=== PATIENT | female | born 1955 | race Caucasian/White ===

== ENCOUNTER → 2021-09-29 | Outpatient (CLI) | payer MEDICARE, OTHER | END | disposition home or self-care (01) | LOC: RAH 09-04 09:22 | PROVIDERS: ATTEND Internal Medicine | DX: C50.911 Malignant neoplasm of unspecified site of right female breast (principal); C50.912 Malignant neoplasm of unspecified site of left female breast; R92.2 Inconclusive mammogram; Z98.890 Other specified postprocedural states | CPT/HCPCS: 77065; G0279; 77061 ==

== ENCOUNTER → 2022-10-05 | Outpatient (CLI) | payer MEDICARE, OTHER | END | disposition home or self-care (01) | LOC: RAH 10:52 | PROVIDERS: ATTEND Internal Medicine Medical Oncology | DX: R92.2 Inconclusive mammogram (principal); Z85.3 Personal history of malignant neoplasm of breast; Z98.890 Other specified postprocedural states | CPT/HCPCS: 77065; G0279; 77061 ==

== ENCOUNTER 2023-04-21 17:55 | Emergency (ER) | payer MEDICARE, OTHER ==
[~2023-04-21] VITALS: Ht 162.6 cm; Wt 81.6 kg
[2023-04-21 18:49] LABS: BASOPHILS % (AUTO) 0.8 % (0.0-5.0); EOSINOPHILS % (AUTO) 5.1 % (0.0-8.0); HEMATOCRIT 41.6 % (36-48); LYMPHOCYTES % (AUTO) 36.3 % (21.0-51.0); MEAN CORPUSCULAR HEMOGLOBIN 29.3 pg (27.0-33.0); MEAN CORPUSCULAR HGB CONC 32.2 g/dL (32.0-36.0); MONOCYTES % (AUTO) 6.7 % (3.0-13.0); NEUTROPHILS % (AUTO) 50.8 % (40.0-77.0); PLATELET COUNT (AUTO) 221 K/uL (130-400); RED BLOOD CELL COUNT(AUTO) 4.57 MIL/uL (4.00-5.50); RED CELL DISTRIBUTION WIDTH 13.6 % (11.0-15.5); WHITE BLOOD COUNT (AUTO) 7.9 K/uL (4.8-10.8)
[2023-04-21 19:03] LABS: ALBUMIN 3.4 g/dL (3.5-5.0); CREATININE 0.7 mg/dL (0.5-1.5); POTASSIUM 3.9 mmol/L (3.5-5.1); TOTAL PROTEIN, SERUM 6.6 g/dL (6.0-8.3)
[2023-04-21 20:42] VITALS: BP 119/49
[2023-04-21 20:43] LABS: APPEARANCE,URINE CLEAR (CLEAR); BILIRUBIN,URINE NEGATIVE (NEGATIVE); COLOR,URINE LIGHT-YELLOW (YELLOW); GLUCOSE, URINE (UA) NEGATIVE (NEGATIVE); KETONES,URINE NEGATIVE (NEGATIVE); LEUKOCYTE ESTERASE ,URINE 500 Leu/uL (NEGATIVE); NITRATE,URINE NEGATIVE (NEGATIVE); OCCULT BLOOD,URINE NEGATIVE (NEGATIVE); PH,URINE 6.5 (5.0-8.0); PROTEIN,URINE NEGATIVE (NEGATIVE); UROBILINOGEN,URINE 0.2 mg/dL (0.2-1.0)
[2023-04-21 20:48] LABS: BACTERIA,URINE FEW /HPF (None Seen); MUCUS,URINE RARE LPF (None Seen); SQUAMOUS EPITHELIAL CELL,UR FEW /HPF (0-2); WBC,URINE 26-50 /HPF (0-1)
[2023-04-21] MEDS ORDERED: ASPIRIN 325MG TAB PO ONE (21:00)
[2023-04-21] MEDS ORDERED: CEFTRIAXONE 2GM VIAL IVPB ONE (21:30)
[2023-04-21] MEDS ORDERED: CEPH500B PO (21:31)
== END 2023-04-21 22:16 | disposition home or self-care (01) ==
LOC: EDH 17:55
DX: R07.89 Other chest pain (principal); N39.0 Urinary tract infection, site not specified; Z85.3 Personal history of malignant neoplasm of breast; Z90.710 Acquired absence of both cervix and uterus
CPT/HCPCS: 99285; 96365; 71045; 84484 ×2; 80053; 85025; 87088; 81001; 36415; 93005 ×2; J0696

== ENCOUNTER → 2023-10-06 | Outpatient (CLI) | payer MEDICARE, OTHER ==
[~2023-10-06] MED LIST: CEPH500B PO
== END | disposition home or self-care (01) ==
LOC: RAH 07:52
PROVIDERS: ATTEND Internal Medicine Medical Oncology
DX: R92.311 Mammographic fatty tissue density, right breast (principal); R92.2 Inconclusive mammogram; Z85.3 Personal history of malignant neoplasm of breast; Z98.890 Other specified postprocedural states
CPT/HCPCS: 77065; G0279; 77061

== ENCOUNTER → 2024-10-02 | Outpatient (CLI) | payer MEDICARE, OTHER ==
--- NOTE | 2024-10-02 14:47 | HMCIMG ---
US RENAL SONOGRAM HISTORY: Cystitis COMPARISON: None TECHNIQUE: Renal and bladder ultrasound study was performed. FINDINGS: The right kidney measures 9 x 5 x 4.5 cm. The left kidney measures 9.7 x 4.6 x 4.6 cm. No evidence of hydronephrosis is seen of either kidney. There are bilateral renal pelvis fullness. Bladder is moderately distended. Bladder wall measures 4 mm. The void bladder volume is 70 cc. Post for bladder volume is 48 cc. IMPRESSION: 1. No hydronephrosis is seen. There are bilateral renal pelvis fullness. Moderate amount of postvoid residual is seen.
== END | disposition home or self-care (01) ==
LOC: RAH 12:45
PROVIDERS: ATTEND Nurse Practitioner Family
DX: N32.89 Other specified disorders of bladder (principal); N30.90 Cystitis, unspecified without hematuria
CPT/HCPCS: 76770

== ENCOUNTER → 2024-11-14 | Outpatient (CLI) | payer MEDICARE, OTHER ==
--- NOTE | 2024-11-15 09:07 | HMCIMG ---
DIAGNOSTIC MAMMOGRAM WITH TOMOSYNTHESIS, also right breast ultrasound. HISTORY: HX OF BREAST CA COMPARISON: 10/06/2023 TECHNIQUE: Right digital diagnostic mammogram was performed. No additional views were obtained. Tomosynthesis was performed.CAD was performed as well. Right breast ultrasound images were performed as well. FINDINGS: Parenchymal density: There are scattered areas of fibroglandular density. There are lumpectomy changes in the upper outer quadrant of the right breast unchanged compared to prior studies. There are no focal masses. There are no pathologic appearing calcifications. There is no evidence of nipple retraction or skin thickening. Right breast ultrasound was performed. There is mild architectural distortion at the site of lumpectomy scar. There is no discrete focal mass lesion. Breast parenchyma appears otherwise unremarkable. There are a few normal-appearing lymph nodes in the axilla. IMPRESSION: 1. Unremarkable right breast mammogram with tomosynthesis 2. No suspicious lesions seen on the right breast ultrasound. The patient was entered into a reminder system with a target due date for their next mammogram. BI-RADS CATEGORY 2: BENIGN FINDINGS Recommend monthly self breast exam as well as annual clinical examination. A negative x-ray should not delay biopsy if a dominant or clinically suspicious mass is present, since 8-10% of cancers are not identified by mammography. Dense breasts particularly, may obscure an underlying neoplasm. Some of these may be detected clinically and therefore, clinical examination is an essential part of breast evaluation.
--- NOTE | 2024-11-15 09:13 | HMCIMG ---
US BREAST COMPLETE UNILATERAL REASON: HX OF CA COMPARISON: None Impression: 1. Right breast ultrasound was performed. Benign findings are discussed in the diagnostic mammogram dictation.
--- NOTE | 2024-11-15 11:20 | HMCIMG ---
US CHEST WALL SOFT TISSUE REASON: HX OF CA COMPARISON: None TECHNIQUE: Ultrasound was performed in the area of question left chest wall. FINDINGS: There is been a previous mastectomy. Soft tissues of the chest wall appear normal. Particular attention to the area in question shows no evidence of focal mass or cyst. IMPRESSION: 1. Negative ultrasound of the left chest wall in the area of concern.
== END | disposition home or self-care (01) ==
LOC: RAH 13:13
PROVIDERS: ATTEND Internal Medicine Medical Oncology
DX: C50.012 Malignant neoplasm of nipple and areola, left female breast (principal); R92.323 Mammographic fibroglandular density, bilateral breasts; Z90.12 Acquired absence of left breast and nipple; Z85.3 Personal history of malignant neoplasm of breast
CPT/HCPCS: 76604; 77065; 76641; G0279; 77061